=== PATIENT | male | born 1950 ===

== ENCOUNTER 2020-12-12 05:40 | Day surgery (SDC) | payer OTHER ==
[~2020-12-12 05:40] MED LIST: FORTAMET500 MG PO; GLIMEPIRIDE4 MG; PROVASTATIN PO; SYNTHROID50 MCG PO; VASOTEC20 M1 PO
== END 2020-12-12 11:50 | disposition home or self-care (01) ==
LOC: CIR.AMB 05:40
PROVIDERS: ATTEND Urology
DX: C67.5 Malignant neoplasm of bladder neck (principal); C66.1 Malignant neoplasm of right ureter; Z20.822 Contact with and (suspected) exposure to COVID-19